=== PATIENT | male | born 1995 | race Caucasian/White ===

== ENCOUNTER → 2016-07-20 | Day surgery (SDC) | payer BC, OTHER ==
[~2016-07-20] VITALS: Ht 198.1 cm; Wt 125.0 kg
[~2016-07-20] MED LIST: IOPAMIDOL INJ 61% 15 ML VIAL ONE; LIDOCAINE HCL 1% MPF 5 ML VIAL ONE; SODIUM CHLORIDE 0.9% INJ 10 ML VIAL ONE; VNTHFA/IN INH
[2016-07-20 13:49] VITALS: Ht 198.1 cm; Wt 125.0 kg
--- NOTE | 2016-07-20 14:43 | History & Physical Bridge - [place] ---
H&P Re-Evaluation Bridge Note: I have examined the patient, reviewed the History & Physical and in the interval since the performance of the History & Physical I have noted the following changes of clinical significance: No changes noted
--- NOTE | 2016-07-20 15:10 | Discharge Instructions ---
Discharge Instructions Visit Reason for Visit: Low Back Pain Discharge Discharge Diagnosis / Problem: left leg pain Discharge Goals Goal(s): Decrease discomfort, Improve function Activity Recommendations Activity Limitations: resume your previous activity Anesthesia . Post Anesthesia Instructions: If you have had General Anesthesia or IV Sedation: * Do not drive today. * Resume driving when surgeon permits. * Do not make important decisions or sign legal documents today. * Call surgeon for: 1. Temperature elevations greater than 101 degrees F. 2. Uncontrollable pain. 3. Excessive bleeding. 4. Persistent nausea and vomiting. 5. Medication intolerance (nausea, vomiting or rash). * For nausea and vomiting use only clear liquids such as: tea, soda, bouillon until nausea subsides, then gradually increase diet as tolerated. * If you have any concerns or questions, call your surgeon's office. If physician is unavailable and it is an emergency, call 911 or go to the nearest emergency room. . Diet Recommendations Recommended Home Diet: resume previous diet Procedures Procedures Performed: Lumbar Epidural Steroid Injection. Pending Studies Studies pending at discharge: no Medical Emergencies . Who to Call and When: Medical Emergencies: If at any time you feel your situation is an emergency, please call 911 immediately. . Non-Emergent Contact Non-Emergency issues call your: Specialist . . "Provider Documentation" section prepared by Gordon Hernandez.
[2016-07-20 15:12] VITALS: TEMP 37.3
[2016-07-20 15:18] VITALS: BP 124/64; PULSE 53; O2SAT 97
--- NOTE | 2016-07-20 15:38 | OPERATIVE REPORT ---
DATE OF OPERATION: 07/20/2016 PREOPERATIVE DIAGNOSIS: L5-S1 herniated nucleus pulposus with a left S1 radiculopathy. POSTOPERATIVE DIAGNOSIS: Same. PROCEDURE: Left paramedian L5-S1 intralaminar epidural steroid injection under fluoroscopic guidance. INDICATIONS: The patient is a 20-year-old white male, who has had persistent radicular pain for a number of months. It has not responded to conservative treatment. MRI revealed a L5-S1 herniation coming in close contact to the S1 nerve root. He presents today for an epidural steroid injection under fluoroscopic guidance to alleviate his symptoms down the left leg. PHYSICAL EXAMINATION: Pleasant male seated comfortably in no apparent distress. He has limited flexion. He has normal extension and he has negative straight leg raises bilaterally, intact motor and sensory exam of his lower extremities. CONSENT: Verbal and written consent was obtained from the patient. Risks and benefits were reviewed. Risks include but are not limited to epidural abscess, epidural hematoma, allergic reaction and dural puncture. The patient wishes to proceed. PROCEDURE: The patient was taken back to the special procedures room at [facility] where he was maintained in a prone position. Backside was cleansed with Betadine x3 and a dry sterile dressing was applied. Fluoroscope was used to identify the L5-S1 intralaminar space and overlying skin was anesthetized on the left side with 4 mL of lidocaine 1% with a 25 gauge 1.5 inch needle. A 22-gauge 3-1/2 inch Tuohy needle was then directed down towards the intralaminar space. It was advanced under lateral fluoroscopic guidance and lots of resistance was noted at a depth of 6.5 cm. Isovue-300 contrast 1 mL was injected in under fluoroscopic guidance and reproduced a familiar transient radicular sensation down the leg. DISPOSITION: 1. The patient is taken out into the discharge recovery area where he will be discharged home once discharge criteria have been met. 2. Follow-up in the [facility] office in 2-4 weeks. I attest to the content of the Intraoperative Record and any orders documented therein. Any exceptio ns are noted below.
== END | disposition home or self-care (01) ==
LOC: X.SURG 13:44
PROVIDERS: ATTEND Physical Medicine & Rehabilitation
DX: M51.17 Intervertebral disc disorders with radiculopathy, lumbosacral region (principal)

== ENCOUNTER → 2016-08-24 | Day surgery (SDC) | payer BC, OTHER ==
[2016-08-22 15:48] VITALS: Ht 198.1 cm; Wt 125.5 kg
[~2016-08-24] VITALS: Ht 198.1 cm; Wt 125.5 kg
[2016-08-24 15:20] VITALS: TEMP 37
--- NOTE | 2016-08-24 15:28 | Discharge Instructions ---
Discharge Instructions Visit Reason for Visit: Low Back Pain Discharge Discharge Diagnosis / Problem: Left leg pain Activity Recommendations Activity Limitations: resume your previous activity Anesthesia . Post Anesthesia Instructions: If you have had General Anesthesia or IV Sedation: * Do not drive today. * Resume driving when surgeon permits. * Do not make important decisions or sign legal documents today. * Call surgeon for: 1. Temperature elevations greater than 101 degrees F. 2. Uncontrollable pain. 3. Excessive bleeding. 4. Persistent nausea and vomiting. 5. Medication intolerance (nausea, vomiting or rash). * For nausea and vomiting use only clear liquids such as: tea, soda, bouillon until nausea subsides, then gradually increase diet as tolerated. * If you have any concerns or questions, call your surgeon's office. If physician is unavailable and it is an emergency, call 911 or go to the nearest emergency room. . Diet Recommendations Recommended Home Diet: resume previous diet Pending Studies Studies pending at discharge: no Medical Emergencies . Who to Call and When: Medical Emergencies: If at any time you feel your situation is an emergency, please call 911 immediately. . Non-Emergent Contact Non-Emergency issues call your: Specialist . . "Provider Documentation" section prepared by Gordon Hernandez.
[2016-08-24 15:34] VITALS: BP 126/79; PULSE 60; O2SAT 96
--- NOTE | 2016-08-24 15:41 | OPERATIVE REPORT ---
DATE OF OPERATION: 08/24/2016 PREOPERATIVE DIAGNOSIS: L5-S1 herniated nucleus pulposus with a left S1 radiculopathy. POSTOPERATIVE DIAGNOSIS: Same. PROCEDURE: Left paramedian L5-S1 intralaminar epidural steroid injection under fluoroscopic guidance. SURGEON: Dr. Gordon Hernandez. 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 He reports that some of the pain has started to come back. He had a solid 1 month of complete relief. As the pain has been coming back decision is made to do a second injection to try to stack the effects of improvement. He reports some pain radiating down the left leg in the classic S1 dermatomal distribution. CONSENT: Verbal and written consent was obtained from the patient. Risks and benefits were reviewed. Risks include but are not limited to epidural abscess, epidural hematoma, allergic reaction, dural puncture. The patient wishes to proceed. PROCEDURE: The patient was taken back to the special procedures room of the [facility] where he was maintained in a prone position. Backside was cleansed with Betadine x3 and a dry sterile dressing was applied. Fluoroscope was used to identify the L5-S1 intralaminar space. Overlying skin on the left side was anesthetized with 4 mL of lidocaine 1% with a 25 gauge 1.5-inch needle. A 22-gauge 3-1/2 inch Tuohy needle was then directed down towards the intralaminar space. It was advanced under lateral fluoroscopic guidance and loss of resistance was noted at a depth of 6 cm. Isovue 300 contrast was injected in but it appeared to also be in the soft tissues. It was advanced another centimeter and a half where another loss of resistance was noted. Isovue 300 contrast then did show epidural uptake in both AP and lateral views. He then underwent injection after negative aspiration of 40 mg of Depo-Medrol and 4 mL of preservative free sodium chloride. Injection was well tolerated. DISPOSITION: 1. The patient is taken out into the discharge recovery area where he will be discharged home once discharge criteria have been met. 2. Follow up in the [facility] office in 2-4 weeks. I attest to the content of the Intraoperative Record and any orders documented therein. Any exceptio ns are noted below.
== END | disposition home or self-care (01) ==
LOC: X.SURG 14:04
PROVIDERS: ATTEND Physical Medicine & Rehabilitation
DX: M51.17 Intervertebral disc disorders with radiculopathy, lumbosacral region (principal)

== ENCOUNTER → 2017-02-16 | Outpatient (CLI) | payer BC, OTHER ==
[~2017-02-16] MED LIST changes: -IOPAMIDOL INJ 61% 15 ML VIAL ONE; -LIDOCAINE HCL 1% MPF 5 ML VIAL ONE; -SODIUM CHLORIDE 0.9% INJ 10 ML VIAL ONE
--- NOTE | 2017-02-16 21:11 | DIAGNOSTIC IMAGING REPORT ---
RIGHT UPPER EXT JOINT WITHOUT CLINICAL HISTORY: 21 years-old Male presenting with R WRIST PAIN, right wrist/thumb injury last Monday/, numbness at the time of injury, still experiencing pain, pain when bending wrist. TECHNIQUE: Multisequence, multiplanar MR imaging of the right wrist was performed without the use of intravenous contrast. IV contrast: None. COMPARISON: None. FINDINGS: Localizer images: Unremarkable. A marker is noted over the radial aspect of the wrist. The subcutaneous tissue at this site is unremarkable. However, minimal fluid tracks along the tendon sheaths of the second extensor compartment (extensor carpi radialis brevis and extensor carpi radialis longus). The tendons themselves appear intact. Normal bone marrow signal intensity. No acute fracture or malalignment. Articular cartilage intact. Minimal joint fluid is noted in the radiocarpal and midcarpal compartments. Triangular fibrocartilage articular disc intact. Distal radial ulnar articulation normal. Dorsal and volar scapholunate and lunotriquetral interosseous ligaments intact. No edema within the carpal tunnel. Normal signal intensity of the median nerve. The Guyon's canal is preserved with a normal appearance of the ulnar neurovascular bundle. Mild degenerative change may be present at the articulation of the hamate and capitate along the volar aspect distally immediately deep to the carpal tunnel. IMPRESSION: 1. Minimal fluid along the tendon sheaths of the second extensor compartment (extensor carpi radialis brevis and extensor carpi radialis longus). This could suggest minimal tenosynovitis. 2. No acute osseous injury. 3. Mild degenerative change at the articulation of the hamate and capitate. Electronically signed by: Sudhir Dhaliwal M.D. 02/16/2017 9:10 PM Dictated Date/Time: 02/16/2017 8:59 PM
== END | disposition home or self-care (01) ==
LOC: C.MRI 19:40
PROVIDERS: ATTEND Orthopaedic Surgery
DX: M25.531 Pain in right wrist (principal); M19.031 Primary osteoarthritis, right wrist; M19.041 Primary osteoarthritis, right hand; Z87.828 Personal history of other (healed) physical injury and trauma

== ENCOUNTER → 2017-04-16 | Outpatient (CLI) | payer BC, OTHER | END | disposition home or self-care (01) | LOC: C.RDSM 13:00 | PROVIDERS: ATTEND Family Medicine | DX: R07.81 Pleurodynia (principal) ==

== ENCOUNTER → 2017-04-23 | Outpatient (CLI) | payer BC, OTHER ==
--- NOTE | 2017-04-24 07:10 | DIAGNOSTIC IMAGING REPORT ---
MRI OF THE LEFT LOWER LEG NO CONTRAST CLINICAL HISTORY: Left calf pain status post trauma COMPARISON STUDY: No previous studies for comparison. FINDINGS: Imaging was performed in the axial, sagittal, and coronal planes. There are no areas of marrow edema to indicate occult fracture. There is edema within and surrounding the tibialis posterior muscle consistent with a partial tear/strain. There is also minimal edema within the flexor hallucis longus muscle consistent with a muscle strain. No tendon ruptures demonstrated. IMPRESSION: 1. No evidence of occult fracture 2. Edema within and surrounding tibialis posterior muscle consistent with a partial tear 3. Minimal edema within the flexor hallucis longus muscle consistent with a muscle strain Electronically signed by: Dario Ramos M.D. 04/24/2017 7:09 AM Dictated Date/Time: 04/24/2017 6:40 AM
== END | disposition home or self-care (01) ==
LOC: C.MRI 13:05
PROVIDERS: ATTEND Family Medicine
DX: M79.662 Pain in left lower leg (principal); R60.0 Localized edema

== ENCOUNTER → 2017-07-11 | Outpatient (CLI) | payer BC, OTHER ==
--- NOTE | 2017-07-11 16:13 | DIAGNOSTIC IMAGING REPORT ---
LUMBAR SPINE W/O CONTRAST HISTORY: Pain LOW BACK PAIN,PREV DISCECTOMY TECHNIQUE: Multiplanar multisequence MRI of the lumbar spine was performed without the use of contrast. COMPARISON: 07/11/2016 FINDINGS: For the purpose of the report the L5-S1 disc space will be located on axial image 27 of 30. L1-L2: No significant central canal or neural foraminal narrowing. L2-L3: No significant central canal or neural foraminal narrowing. L3-L4: No significant central canal or neural foraminal narrowing. L4-L5: No significant central canal or neural foraminal narrowing. L5-S1: Recurrent/residual disc herniation L5-S1. This is somewhat central compared to the prior study which was slightly left of midline. Current measurements are 2.0 x 0.9 cm transaxially. There is a moderate narrowing of the neuroforamina bilaterally. Narrowing left is similar to perhaps slightly increased in prominence as compared to the prior study. The right neural foraminal narrowing is no finding. Changes to the posterior soft tissues consistent with a prior microdiscectomy are noted. IMPRESSION: 1. Recurrent/residual disc herniation L5-S1 located more centrally than the prior study. 2. Moderate impact upon the anterior aspect of the thecal sac 3. Moderate narrowing of the neural foramina bilaterally slightly progressive compared to the prior exam. The above report was generated using voice recognition software. It may contain grammatical, syntax or spelling errors. Electronically signed by: José Rader M.D. 07/11/2017 4:12 PM Dictated Date/Time: 07/11/2017 4:07 PM
== END | disposition home or self-care (01) ==
LOC: C.MRIBC 15:25
PROVIDERS: ATTEND Orthopaedic Surgery
DX: M51.27 Other intervertebral disc displacement, lumbosacral region (principal)

== ENCOUNTER → 2017-08-23 | Day surgery (SDC) | payer BC, OTHER ==
[2017-08-22 15:04] VITALS: Ht 198.1 cm; Wt 115.9 kg
[~2017-08-23] VITALS: Ht 198.1 cm; Wt 115.9 kg
[~2017-08-23] MED LIST changes: +BUPIVACAINE 0.25% 2.5MG/ML PF 10 ML VIAL ONE; +IOPAMIDOL INJ 61% 15 ML VIAL ONE; +LIDOCAINE HCL 1% MPF 5 ML VIAL ONE; +METHYLPREDNISOLONE ACETATE 80 MG/ML VIAL ONE
--- NOTE | 2017-08-23 08:19 | [facility] Post Operative Brief Note ---
Immediate Operative Summary Operative Date Aug 23, 2017. Pre-Operative Diagnosis FACET PAIN, HYPERTROPHY Post-Operative Diagnosis L4-5 facet arthropathy Procedure(s) Performed Bilateral L4-L5 Facet Joint Injection Surgeon DR. Lu CHAPPELL Recreation Activities Coordinator Surgeon(s) None Estimated Blood Loss NONE Findings Consistent with Post-Op Diagnosis Specimens NA Anesthesia Type Local Complication(s) none Disposition Disposition:
[2017-08-23 08:20] VITALS: TEMP 36.6
--- NOTE | 2017-08-23 08:20 | Discharge Instructions ---
Discharge Instructions Date of Service Aug 23, 2017. Visit Reason for Visit: Low Back Pain Discharge Discharge Diagnosis / Problem: low back pain Discharge Goals Goal(s): Decrease discomfort, Improve function Activity Recommendations Activity Limitations: resume your previous activity Anesthesia . Post Anesthesia Instructions: If you have had General Anesthesia or IV Sedation: * Do not drive today. * Resume driving when surgeon permits. * Do not make important decisions or sign legal documents today. * Call surgeon for: 1. Temperature elevations greater than 101 degrees F. 2. Uncontrollable pain. 3. Excessive bleeding. 4. Persistent nausea and vomiting. 5. Medication intolerance (nausea, vomiting or rash). * For nausea and vomiting use only clear liquids such as: tea, soda, bouillon until nausea subsides, then gradually increase diet as tolerated. * If you have any concerns or questions, call your surgeon's office. If physician is unavailable and it is an emergency, call 911 or go to the nearest emergency room. . Diet Recommendations Recommended Home Diet: resume previous diet Procedures Procedures Performed: Bilateral L4-L5 Facet Joint Injection Pending Studies Studies pending at discharge: no Medical Emergencies . Who to Call and When: Medical Emergencies: If at any time you feel your situation is an emergency, please call 911 immediately. . Non-Emergent Contact Non-Emergency issues call your: Specialist . . "Provider Documentation" section prepared by Gordon Hernandez. .
[2017-08-23 08:42] VITALS: BP 114/74; PULSE 50; O2SAT 96
--- NOTE | 2017-08-23 09:22 | OPERATIVE REPORT ---
DATE OF OPERATION: 08/23/2017 PREOPERATIVE DIAGNOSES: Chronic low back pain, bilateral L4-L5 facet arthropathy and pain, history of an L5-S1 discectomy. POSTOPERATIVE DIAGNOSES: Same. PROCEDURE: Bilateral L4-L5 facet joint injections under fluoroscopic guidance. INDICATIONS: The patient is a 21-year-old white male who has low back pain. He had a discectomy and laminectomy done at L5-S1 and he has pain above this, worse with extension, moving from a flexed position to an extended position, localizing to the L4-L5 facets, both right and left side, a little worse on the right than the left. PHYSICAL EXAMINATION: Pleasant male, seated comfortably. He has facet tenderness to palpation superior to his incision bilaterally, worse with extension and rotation. He has no radiating symptoms or weakness down the legs. CONSENT: Verbal and written consent was obtained from the patient. Risks and benefits reviewed. Risks include but are not limited to abscess and allergic reaction, and he wishes to proceed. PROCEDURE IN DETAIL: The patient was taken back to the special procedures room of the [facility] where he was maintained in a prone position. Backside was cleansed with Betadine x3 and a dry sterile dressing was applied. Fluoroscope was used to identify the left L4-L5 facet joint in an oblique projection. Overlying skin was anesthetized with 4 mL of lidocaine 1% with a 25-gauge 1-1/2-inch needle. A 25-gauge 3-1/2-inch needle was then slipped into the joint. Scant amount of Isovue 300 contrast was injected to ensure that it was intraarticularly placed. He then underwent injection after negative aspiration, of 40 mg of Depo-Medrol and 0.5 mL of bupivacaine 0.25%. The right L4-L5 facet joint was then fluoroscopically identified in an oblique fashion. The overlying skin anesthetized with 4 mL of lidocaine 1% with 25-gauge 1-1/2-inch needle. A 25-gauge 3-1/2-inch spinal needle was then directed into the joint under fluoroscopic guidance. Isovue 300 contrast, a scant amount, revealed it to be intraarticular but a little bit more collected at the bottom of the joint. It was then readjusted, reinjected, and showed more intraarticular collection of the Isovue 300 contrast, and then he underwent injection of 40 mg of Depo-Medrol and 0.5 mL of bupivacaine 0.25%. Injections were well tolerated. DISPOSITION: 1. The patient is taken out into the discharge recovery area. He will be discharged home once discharge criteria have been met. 2. Follow up in the [facility] office and/or with team physicians. I attest to the content of the Intraoperative Record and any orders documented therein. Any exception s are noted below.
== END | disposition home or self-care (01) ==
LOC: X.SURG 07:10
PROVIDERS: ATTEND Physical Medicine & Rehabilitation
DX: M54.5 Low back pain (principal); M12.9 Arthropathy, unspecified

== ENCOUNTER → 2017-11-08 | Day surgery (SDC) | payer BC, OTHER ==
[2017-10-19 08:59] VITALS: Ht 198.1 cm; Wt 115.9 kg
[~2017-11-08] VITALS: Ht 198.1 cm; Wt 115.9 kg
[~2017-11-08] MED LIST changes: -IOPAMIDOL INJ 61% 15 ML VIAL ONE; +LIDOCAINE HCL 1% 20 ML VIAL ONE; -LIDOCAINE HCL 1% MPF 5 ML VIAL ONE; -METHYLPREDNISOLONE ACETATE 80 MG/ML VIAL ONE
--- NOTE | 2017-11-08 13:50 | [facility] Post Operative Brief Note ---
Immediate Operative Summary Operative Date November 08, 2017. Pre-Operative Diagnosis Bilateral L4-5 facet arthropathy History of an L5-S1 disc disease Post-Operative Diagnosis Same Procedure(s) Performed Bilateral L4-[address] Lu Hernandez Directional Driller Surgeon(s) None Estimated Blood Loss 0 Findings Consistent with Post-Op Diagnosis Specimens NA Drains None Anesthesia Type Local Complication(s) none Disposition Disposition:
[2017-11-08 13:52] VITALS: TEMP 37.1
--- NOTE | 2017-11-08 13:52 | Discharge Instructions ---
Discharge Instructions Date of Service November 08, 2017. Visit Reason for Visit: Low Back Pain Discharge Discharge Diagnosis / Problem: low back pain Discharge Goals Goal(s): Decrease discomfort, Improve function Activity Recommendations Activity Limitations: resume your previous activity Anesthesia . Post Anesthesia Instructions: If you have had General Anesthesia or IV Sedation: * Do not drive today. * Resume driving when surgeon permits. * Do not make important decisions or sign legal documents today. * Call surgeon for: 1. Temperature elevations greater than 101 degrees F. 2. Uncontrollable pain. 3. Excessive bleeding. 4. Persistent nausea and vomiting. 5. Medication intolerance (nausea, vomiting or rash). * For nausea and vomiting use only clear liquids such as: tea, soda, bouillon until nausea subsides, then gradually increase diet as tolerated. * If you have any concerns or questions, call your surgeon's office. If physician is unavailable and it is an emergency, call 911 or go to the nearest emergency room. . Diet Recommendations Recommended Home Diet: resume previous diet Procedures Procedures Performed: Bilateral L4-5 Radio Frequency Denervation Pending Studies Studies pending at discharge: no Medical Emergencies . Who to Call and When: Medical Emergencies: If at any time you feel your situation is an emergency, please call 911 immediately. . Non-Emergent Contact Non-Emergency issues call your: Specialist . . "Provider Documentation" section prepared by Gordon Hernandez. .
[2017-11-08 14:20] VITALS: BP 129/80; PULSE 52; O2SAT 97
--- NOTE | 2017-11-08 15:57 | OPERATIVE REPORT ---
DATE OF OPERATION: 11/08/2017 PREOPERATIVE DIAGNOSES: History of an L5-S1 diskectomy, bilateral L4-L5 facet arthropathy, chronic low back pain. POSTOPERATIVE DIAGNOSES: History of an L5-S1 diskectomy, bilateral L4-L5 facet arthropathy, chronic low back pain. PROCEDURE: Bilateral L4-L5 medial branch denervations. INDICATIONS: The patient is a 22-year-old white male who is a member of the [employer] who underwent successful bilateral facet points blocks that lasted for about 6 weeks. The pain started became problematic and limiting to him and he proceeds with a radiofrequency denervation to provide him with longer lasting relief in the order of 10-12 months. PHYSICAL EXAMINATION: A pleasant male, seated comfortably. He is point tender to palpation over the facets, left worse than the right, worse with extension, relieved with flexion. No focal weakness. CONSENT: Verbal and written consent was obtained from the patient. Risks and benefits were reviewed. Risks include but are not limited to abscess, allergic reaction, nerve denervation. He wishes to proceed. PROCEDURE IN DETAIL: The patient was taken back to the special procedures room of the [facility] where he was maintained in a prone position. The backside was cleansed with Betadine x3 and a dry sterile dressing was applied. Fluoroscope was used to identify the left L4-L5 transverse process junctions. The overlying skin was anesthetized with 1.5 mL of lidocaine 1% with a 25 gauge 1.5-inch needle. A 22 gauge 10 cm Vonnie needle contacted the bony target at L4. First at L4, then at L5, he had sensory stimulation done that provoked sensation to 0.2 volts at each level. Motor stimulation provoked robust paraspinal spasms, but nothing into the legs. Each side was anesthetized with 1 mL lidocaine 1% and then denervated 100 seconds at 80 degrees x2 at each site and then followed by an injection of bupivacaine 0.25% 1 mL. The right side was then identified in a similar fashion. The overlying skin anesthetized at the L4 transverse process junction and the L5 transverse process junction. A 22 gauge 10 cm Dundas needle contacted bone at each site, was used to stimulate 0.2 volts at L4, 0.3 volts at L5 sensory stimulation. Motor stimulation provoked robust localized paraspinal spasms, but nothing down the legs. He then underwent anesthetization with 1 mL lidocaine 1% at each site and then radiofrequency denervation 100 seconds 80 degrees x2 at L4 then same at L5 100 seconds 80 degrees and these were then anesthetized after denervation with 1 mL of bupivacaine 0.25%. The injection was well-tolerated. DISPOSITION: 1. The patient is taken out into the discharge recovery area where he will be discharged home once discharge criteria are met. 2. Follow up in the [facility] office in 4 weeks' time. I attest to the content of the Intraoperative Record and any orders documented therein. Any exception s are noted below.
== END | disposition home or self-care (01) ==
LOC: X.SURG 11:59
PROVIDERS: ATTEND Physical Medicine & Rehabilitation
DX: M46.96 Unspecified inflammatory spondylopathy, lumbar region (principal); G89.29 Other chronic pain